=== PATIENT | female | born 1935 | race Caucasian/White ===

== ENCOUNTER → 2017-09-15 | Outpatient (CLI) | payer MEDICARE | END | disposition home or self-care (01) | LOC: PCVCCLINIC 12:19 | DX: R06.02 Shortness of breath (principal); R94.31 Abnormal electrocardiogram [ECG] [EKG]; R94.2 Abnormal results of pulmonary function studies; Z79.899 Other long term (current) drug therapy | CPT/HCPCS: 80061; 93005; G0463 ==